=== PATIENT | male | born 1935 | race Caucasian/White ===

== ENCOUNTER 2018-09-25 10:25 | Emergency (ER) | payer MEDICARE, OTHER ==
[~2018-09-25] VITALS: Ht 175.3 cm; Wt 88.0 kg
[2018-09-25] MEDS ORDERED: TR1O15 TP (10:53)
[2018-09-25] MEDS ORDERED: CLIN150C17 PO (10:53)
--- NOTE | 2018-09-25 10:54 | ED Integumentary General ---
General Chief Complaint: Skin/Wound Problems Stated Complaint: ABSCESS Source: patient, RN notes reviewed Exam Limitations: no limitations History of Present Illness Date Seen by Provider: Sep 25, 2018 Time Seen by Provider: 10:41 Initial Comments Patient presents c/ c/o worsening abscesses in both of his armpits c/ the left one being the worst. Has been getting some drainage from the left one. Has had one on the left years ago. Timing/Duration: getting worse Severity: moderate Location: torso (B/L axillae) Possible Cause: no cause identified Modifying Factors: worse with scratching Associated Symptoms: denies symptoms (x/ as noted.), swelling/mass/lumps Allergies and Home Medications Allergies Coded Allergies: No Known Drug Allergies (Unverified , 09/25/18) Home Medications Clindamycin HCl 150 Mg Capsule, 300 MG PO QID Prescribed by: AIMEE BONE on 09/25/18 1053 Triamcinolone Acet 15 Gm Oint, 1 APPLIC TP BID Prescribed by: AIMEE BONE on 09/25/18 1053 Patient Home Medication List Home Medication List Reviewed: Yes Review of Systems Review of Systems Constitutional: see HPI Skin: see HPI, lesions (B/L axillae) All Other Systems Reviewed Negative Unless Noted: Yes (Negative excepted noted.) Past Nrvmmkn-Zodfso-Woktel Hx Past Medical History Reproductive Disorders: No Physical Exam Vital Signs Vital Signs - First Documented 09/25/18 10:48 Temp 98.5 Pulse 89 Resp 18 B/P (MAP) 141/79 (99) Pulse Ox 94 O2 Delivery Room Air Capillary Refill : General Appearance: WD/WN; No no apparent distress HEENT: other ((+) [place]) Cardiovascular: regular rate, rhythm Respiratory: no respiratory distress Neurologic/Psychiatric: no motor/sensory deficits, alert, normal mood/affect, oriented x 3 Skin: warm/dry Skin Problem Location: torso (B/L axillae) Skin Problem Character: abscess, other (neither is going to require I&D @ this time.) Lymphatic: no adenopathy Progress/Results/Core Measures Results/Orders Vital Signs/I&O 09/25/18 10:48 Temp 98.5 Pulse 89 Resp 18 B/P (MAP) 141/79 (99) Pulse Ox 94 O2 Delivery Room Air Departure Impression Primary Impression: Abscess Disposition: 01 HOME, SELF-CARE Condition: Stable/Unchanged Departure-Patient Inst. Decision time for Depature: 10:49 Referrals: BRODIE MCKAY DO Patient Instructions: Skin Abscess Scripts Triamcinolone Acet (Triamcinolone Acetonide 0.1% Ointment) 15 Gm Oint 1 APPLIC TP BID, #1 TUBE 1 Refill Prov: AIMEE BONE DO 09/25/18 Clindamycin HCl (Clindamycin HCl) 150 Mg Capsule 300 MG PO QID for 10 Days, #80 CAP 0 Refills Prov: AIMEE BONE DO 09/25/18 AIMEE BONE DO Sep 25, 2018 10:53
[2018-09-25 11:00] VITALS: BP 149/71
== END 2018-09-25 11:05 | disposition home or self-care (01) ==
LOC: EDUNIT# 10:25 → ER FS 10:28
DX: L02.412 Cutaneous abscess of left axilla (principal)
CPT/HCPCS: 99282

== ENCOUNTER → 2021-03-31 | Outpatient (CLI) | payer MEDICARE, OTHER ==
[~2021-03-31] MED LIST: CLIN150C20 PO; TR1O15 TP
== END ==
LOC: CARD 11:30
PROVIDERS: ATTEND Internal Medicine Cardiovascular Disease
DX: I10 Essential (primary) hypertension (principal)
CPT/HCPCS: 93306

== ENCOUNTER → 2021-08-03 | Outpatient (CLI) | payer MEDICARE ==
[~2021-08-03] MED LIST changes: +RT-ALBUTEROL SULF 2.5 MG/3 ML PRE-MIX VIAL INH ONE
== END ==
LOC: RT 08:31
PROVIDERS: ATTEND Nurse Practitioner Family
DX: R05.9 Cough, unspecified (principal); R06.02 Shortness of breath
CPT/HCPCS: 94060; 94726; 94729